=== PATIENT | male | born 1935 | race Caucasian/White ===

== ENCOUNTER → 2017-12-22 | Outpatient (CLI) | payer OTHER, MEDICARE ==
[~2017-12-22] MED LIST: ADULT LOW DOSE81 MG PO; ALEVE220 M1 PO; ARICEPT10 M1 PO; ASPIR 8181 MG PO; ASPIRIN325 PO; CALCIUM 500 +1 EAC4 PO; CALCIUM CITRAT480 GM PO; COUMADIN 5 MG TA5 M1 PO; COZAAR 50 MG TA50 M1 PO; ESTER C PO; FISH OIL 1,001000 M1 PO; FISH OIL SOFTG1 EACH PO; FOSAMAX 70 MG T70 M1 PO; HYDROCHLOROTH12.5 M2 PO; HYZAAR 50-12.51 TAB PO; IBUPROFEN 200200 M1 PO; KLOR-CON 1010 MEQ PO; LOVASTATIN 20 M20 MG; MEVACOR 20 MG T20 MG PO; MULTIVITAMINS PO; NEPHROCAPS SOFT1 CAP PO; PEPCID20 MG PO; PRILOSEC40 MG PO; PROTONIX40 M1 PO; ROBAXIN500 MG PO; SIMVASTATIN40 MG PO; TRAMADOL 50 MG50 MG PO; VITAMIN B-12500 MCG PO; VITAMIN D3400 UNI1 PO; [UNRECOGNIZED DRUG - OTHER] PO
== END ==
LOC: HYPER 12-21 15:51
DX: N30.41 Irradiation cystitis with hematuria (principal); R31.0 Gross hematuria; M19.90 Unspecified osteoarthritis, unspecified site; E78.00 Pure hypercholesterolemia, unspecified; I48.91 Unspecified atrial fibrillation; G47.30 Sleep apnea, unspecified; F03.90 Unspecified dementia, unspecified severity, without behavioral disturbance, psychotic disturbance, mood disturbance, and anxiety; Z98.49 Cataract extraction status, unspecified eye; Z85.46 Personal history of malignant neoplasm of prostate

== ENCOUNTER → 2018-01-04 | Outpatient (CLI) | payer OTHER, MEDICARE | LOC: HYPER 06:55 | DX: N30.41 Irradiation cystitis with hematuria (principal); M19.90 Unspecified osteoarthritis, unspecified site; E78.00 Pure hypercholesterolemia, unspecified; I48.91 Unspecified atrial fibrillation; G47.30 Sleep apnea, unspecified; F03.90 Unspecified dementia, unspecified severity, without behavioral disturbance, psychotic disturbance, mood disturbance, and anxiety; Z85.46 Personal history of malignant neoplasm of prostate; Z79.01 Long term (current) use of anticoagulants; Z79.82 Long term (current) use of aspirin; Z85.828 Personal history of other malignant neoplasm of skin; Z98.49 Cataract extraction status, unspecified eye; Z72.89 Other problems related to lifestyle ==

== ENCOUNTER → 2018-01-05 | Outpatient (CLI) | payer OTHER, MEDICARE | LOC: HYPER 07:00 | DX: M87.88 Other osteonecrosis, other site (principal); N30.41 Irradiation cystitis with hematuria; M19.90 Unspecified osteoarthritis, unspecified site; E78.00 Pure hypercholesterolemia, unspecified; I48.91 Unspecified atrial fibrillation; G47.30 Sleep apnea, unspecified; E78.5 Hyperlipidemia, unspecified; F03.90 Unspecified dementia, unspecified severity, without behavioral disturbance, psychotic disturbance, mood disturbance, and anxiety; Z85.46 Personal history of malignant neoplasm of prostate; Z79.01 Long term (current) use of anticoagulants; Z79.82 Long term (current) use of aspirin; Z85.828 Personal history of other malignant neoplasm of skin; Z98.49 Cataract extraction status, unspecified eye; Z72.89 Other problems related to lifestyle ==

== ENCOUNTER → 2018-01-06 | Outpatient (CLI) | payer OTHER, MEDICARE | LOC: HYPER 06:37 | DX: M87.88 Other osteonecrosis, other site (principal); N30.41 Irradiation cystitis with hematuria; M19.90 Unspecified osteoarthritis, unspecified site; E78.00 Pure hypercholesterolemia, unspecified; I48.91 Unspecified atrial fibrillation; G47.30 Sleep apnea, unspecified; E78.5 Hyperlipidemia, unspecified; F03.90 Unspecified dementia, unspecified severity, without behavioral disturbance, psychotic disturbance, mood disturbance, and anxiety; Z85.46 Personal history of malignant neoplasm of prostate; Z85.828 Personal history of other malignant neoplasm of skin; Z72.89 Other problems related to lifestyle; Z98.49 Cataract extraction status, unspecified eye ==

== ENCOUNTER → 2018-01-07 | Outpatient (CLI) | payer OTHER, MEDICARE | LOC: HYPER 06:52 | DX: M87.88 Other osteonecrosis, other site (principal); N30.41 Irradiation cystitis with hematuria; E78.00 Pure hypercholesterolemia, unspecified; I48.91 Unspecified atrial fibrillation; M19.90 Unspecified osteoarthritis, unspecified site; G47.30 Sleep apnea, unspecified; F03.90 Unspecified dementia, unspecified severity, without behavioral disturbance, psychotic disturbance, mood disturbance, and anxiety; Z85.46 Personal history of malignant neoplasm of prostate; Z85.828 Personal history of other malignant neoplasm of skin; Z72.89 Other problems related to lifestyle ==

== ENCOUNTER → 2018-01-08 | Outpatient (CLI) | payer OTHER, MEDICARE | LOC: HYPER 08:09 | DX: M87.88 Other osteonecrosis, other site (principal); M19.90 Unspecified osteoarthritis, unspecified site; E78.5 Hyperlipidemia, unspecified; N30.41 Irradiation cystitis with hematuria; I48.91 Unspecified atrial fibrillation; G47.30 Sleep apnea, unspecified; F03.90 Unspecified dementia, unspecified severity, without behavioral disturbance, psychotic disturbance, mood disturbance, and anxiety; Z85.46 Personal history of malignant neoplasm of prostate; Z72.89 Other problems related to lifestyle ==

== ENCOUNTER → 2018-01-11 | Outpatient (CLI) | payer OTHER, MEDICARE | LOC: HYPER 07:08 | DX: M27.2 Inflammatory conditions of jaws (principal); N30.41 Irradiation cystitis with hematuria; R31.0 Gross hematuria; M19.90 Unspecified osteoarthritis, unspecified site; E78.00 Pure hypercholesterolemia, unspecified; I48.91 Unspecified atrial fibrillation; E78.5 Hyperlipidemia, unspecified; F03.90 Unspecified dementia, unspecified severity, without behavioral disturbance, psychotic disturbance, mood disturbance, and anxiety; Z85.46 Personal history of malignant neoplasm of prostate; Z72.89 Other problems related to lifestyle ==

== ENCOUNTER → 2018-01-12 | Outpatient (CLI) | payer OTHER, MEDICARE | LOC: HYPER 07:07 | DX: M87.88 Other osteonecrosis, other site (principal); N30.41 Irradiation cystitis with hematuria; M19.90 Unspecified osteoarthritis, unspecified site; E78.00 Pure hypercholesterolemia, unspecified; I48.91 Unspecified atrial fibrillation; G47.30 Sleep apnea, unspecified; F03.90 Unspecified dementia, unspecified severity, without behavioral disturbance, psychotic disturbance, mood disturbance, and anxiety; Z85.46 Personal history of malignant neoplasm of prostate; Z85.828 Personal history of other malignant neoplasm of skin; Z72.89 Other problems related to lifestyle ==

== ENCOUNTER → 2018-01-13 | Outpatient (CLI) | payer OTHER, MEDICARE | LOC: HYPER 06:55 | DX: M87.88 Other osteonecrosis, other site (principal); N30.41 Irradiation cystitis with hematuria; M19.90 Unspecified osteoarthritis, unspecified site; E78.00 Pure hypercholesterolemia, unspecified; G47.30 Sleep apnea, unspecified; F03.90 Unspecified dementia, unspecified severity, without behavioral disturbance, psychotic disturbance, mood disturbance, and anxiety; Z85.46 Personal history of malignant neoplasm of prostate; Z85.828 Personal history of other malignant neoplasm of skin; Z72.89 Other problems related to lifestyle ==

== ENCOUNTER → 2018-01-14 | Outpatient (CLI) | payer OTHER, MEDICARE | LOC: HYPER 06:47 | DX: M27.2 Inflammatory conditions of jaws (principal); N30.41 Irradiation cystitis with hematuria; R31.0 Gross hematuria; M19.90 Unspecified osteoarthritis, unspecified site; F03.90 Unspecified dementia, unspecified severity, without behavioral disturbance, psychotic disturbance, mood disturbance, and anxiety; I48.91 Unspecified atrial fibrillation; E78.5 Hyperlipidemia, unspecified; E78.00 Pure hypercholesterolemia, unspecified; Z85.46 Personal history of malignant neoplasm of prostate; Z72.89 Other problems related to lifestyle ==

== ENCOUNTER → 2018-01-15 | Outpatient (CLI) | payer OTHER, MEDICARE | LOC: HYPER 08:00 | DX: M27.2 Inflammatory conditions of jaws (principal); N30.41 Irradiation cystitis with hematuria; R31.0 Gross hematuria; F03.90 Unspecified dementia, unspecified severity, without behavioral disturbance, psychotic disturbance, mood disturbance, and anxiety; M19.90 Unspecified osteoarthritis, unspecified site; E78.00 Pure hypercholesterolemia, unspecified; I48.91 Unspecified atrial fibrillation; E78.5 Hyperlipidemia, unspecified; Z85.46 Personal history of malignant neoplasm of prostate; Z72.89 Other problems related to lifestyle ==

== ENCOUNTER → 2018-01-18 | Outpatient (CLI) | payer OTHER, MEDICARE | LOC: HYPER 06:45 | DX: M27.2 Inflammatory conditions of jaws (principal); N30.41 Irradiation cystitis with hematuria; R31.0 Gross hematuria; F03.90 Unspecified dementia, unspecified severity, without behavioral disturbance, psychotic disturbance, mood disturbance, and anxiety; M19.90 Unspecified osteoarthritis, unspecified site; E78.00 Pure hypercholesterolemia, unspecified; I48.91 Unspecified atrial fibrillation; E78.5 Hyperlipidemia, unspecified; Z72.89 Other problems related to lifestyle; Z85.46 Personal history of malignant neoplasm of prostate ==

== ENCOUNTER → 2018-01-19 | Outpatient (CLI) | payer OTHER, MEDICARE | LOC: HYPER 06:47 | DX: M27.2 Inflammatory conditions of jaws (principal); N30.41 Irradiation cystitis with hematuria; R31.0 Gross hematuria; Z85.46 Personal history of malignant neoplasm of prostate; F03.90 Unspecified dementia, unspecified severity, without behavioral disturbance, psychotic disturbance, mood disturbance, and anxiety; M19.90 Unspecified osteoarthritis, unspecified site; E78.00 Pure hypercholesterolemia, unspecified; I48.91 Unspecified atrial fibrillation; E78.5 Hyperlipidemia, unspecified; Z72.89 Other problems related to lifestyle ==

== ENCOUNTER → 2018-01-20 | Outpatient (CLI) | payer OTHER, MEDICARE | LOC: HYPER 06:45 | DX: M27.2 Inflammatory conditions of jaws (principal); N30.41 Irradiation cystitis with hematuria; C61 Malignant neoplasm of prostate; R31.0 Gross hematuria; F03.90 Unspecified dementia, unspecified severity, without behavioral disturbance, psychotic disturbance, mood disturbance, and anxiety; M19.90 Unspecified osteoarthritis, unspecified site; E78.00 Pure hypercholesterolemia, unspecified; I48.91 Unspecified atrial fibrillation; E78.5 Hyperlipidemia, unspecified; Z85.46 Personal history of malignant neoplasm of prostate; Z72.89 Other problems related to lifestyle ==

== ENCOUNTER → 2018-01-21 | Outpatient (CLI) | payer OTHER, MEDICARE | LOC: HYPER 06:55 | DX: M27.2 Inflammatory conditions of jaws (principal); N30.41 Irradiation cystitis with hematuria; R31.0 Gross hematuria; F03.90 Unspecified dementia, unspecified severity, without behavioral disturbance, psychotic disturbance, mood disturbance, and anxiety; M19.90 Unspecified osteoarthritis, unspecified site; E78.00 Pure hypercholesterolemia, unspecified; I48.91 Unspecified atrial fibrillation; Z85.46 Personal history of malignant neoplasm of prostate; Z72.89 Other problems related to lifestyle ==

== ENCOUNTER → 2018-01-22 | Outpatient (CLI) | payer OTHER, MEDICARE | LOC: HYPER 08:27 | DX: M87.88 Other osteonecrosis, other site (principal); N30.41 Irradiation cystitis with hematuria; E78.00 Pure hypercholesterolemia, unspecified; I48.91 Unspecified atrial fibrillation; M19.90 Unspecified osteoarthritis, unspecified site; G47.30 Sleep apnea, unspecified; F03.90 Unspecified dementia, unspecified severity, without behavioral disturbance, psychotic disturbance, mood disturbance, and anxiety; Z85.828 Personal history of other malignant neoplasm of skin; Z85.46 Personal history of malignant neoplasm of prostate; Z72.89 Other problems related to lifestyle ==

== ENCOUNTER → 2018-01-25 | Outpatient (CLI) | payer OTHER, MEDICARE | LOC: HYPER 06:58 | DX: M27.2 Inflammatory conditions of jaws (principal); N30.41 Irradiation cystitis with hematuria; R31.0 Gross hematuria; Z85.46 Personal history of malignant neoplasm of prostate; F03.90 Unspecified dementia, unspecified severity, without behavioral disturbance, psychotic disturbance, mood disturbance, and anxiety; M19.90 Unspecified osteoarthritis, unspecified site; E78.00 Pure hypercholesterolemia, unspecified; E78.5 Hyperlipidemia, unspecified ==

== ENCOUNTER → 2018-01-26 | Outpatient (CLI) | payer OTHER, MEDICARE | LOC: HYPER 06:53 | DX: M87.88 Other osteonecrosis, other site (principal); N30.41 Irradiation cystitis with hematuria; M19.90 Unspecified osteoarthritis, unspecified site; E78.00 Pure hypercholesterolemia, unspecified; R31.0 Gross hematuria; I48.91 Unspecified atrial fibrillation; G47.30 Sleep apnea, unspecified; F03.90 Unspecified dementia, unspecified severity, without behavioral disturbance, psychotic disturbance, mood disturbance, and anxiety; Z85.46 Personal history of malignant neoplasm of prostate; Z85.828 Personal history of other malignant neoplasm of skin ==

== ENCOUNTER → 2018-01-27 | Outpatient (CLI) | payer OTHER, MEDICARE | LOC: HYPER 06:49 | DX: M87.88 Other osteonecrosis, other site (principal); N30.41 Irradiation cystitis with hematuria; M19.90 Unspecified osteoarthritis, unspecified site; E78.00 Pure hypercholesterolemia, unspecified; I48.91 Unspecified atrial fibrillation; G47.30 Sleep apnea, unspecified; Z85.828 Personal history of other malignant neoplasm of skin; Z85.46 Personal history of malignant neoplasm of prostate ==

== ENCOUNTER → 2018-01-28 | Outpatient (CLI) | payer OTHER, MEDICARE | LOC: HYPER 07:01 | DX: M27.2 Inflammatory conditions of jaws (principal); R31.0 Gross hematuria; N30.41 Irradiation cystitis with hematuria; F03.90 Unspecified dementia, unspecified severity, without behavioral disturbance, psychotic disturbance, mood disturbance, and anxiety; M19.90 Unspecified osteoarthritis, unspecified site; E78.00 Pure hypercholesterolemia, unspecified; I48.91 Unspecified atrial fibrillation; E78.5 Hyperlipidemia, unspecified; Z85.46 Personal history of malignant neoplasm of prostate; Z72.89 Other problems related to lifestyle ==

== ENCOUNTER → 2018-01-29 | Outpatient (CLI) | payer OTHER, MEDICARE | LOC: HYPER 07:15 | DX: M87.88 Other osteonecrosis, other site (principal); N30.41 Irradiation cystitis with hematuria; M19.90 Unspecified osteoarthritis, unspecified site; E78.00 Pure hypercholesterolemia, unspecified; I48.91 Unspecified atrial fibrillation; G47.30 Sleep apnea, unspecified; F03.90 Unspecified dementia, unspecified severity, without behavioral disturbance, psychotic disturbance, mood disturbance, and anxiety; Z85.46 Personal history of malignant neoplasm of prostate ==

== ENCOUNTER → 2018-02-01 | Outpatient (CLI) | payer OTHER, MEDICARE | LOC: HYPER 06:57 | DX: M27.2 Inflammatory conditions of jaws (principal); N30.41 Irradiation cystitis with hematuria; R31.0 Gross hematuria; M19.90 Unspecified osteoarthritis, unspecified site; F03.90 Unspecified dementia, unspecified severity, without behavioral disturbance, psychotic disturbance, mood disturbance, and anxiety; E78.00 Pure hypercholesterolemia, unspecified; E78.5 Hyperlipidemia, unspecified; Z85.46 Personal history of malignant neoplasm of prostate; Z72.89 Other problems related to lifestyle ==

== ENCOUNTER → 2018-02-02 | Outpatient (CLI) | payer OTHER, MEDICARE | LOC: HYPER 07:02 | DX: M87.88 Other osteonecrosis, other site (principal); N30.41 Irradiation cystitis with hematuria; I48.91 Unspecified atrial fibrillation; M19.90 Unspecified osteoarthritis, unspecified site; E78.00 Pure hypercholesterolemia, unspecified; G47.30 Sleep apnea, unspecified; F03.90 Unspecified dementia, unspecified severity, without behavioral disturbance, psychotic disturbance, mood disturbance, and anxiety; Z85.46 Personal history of malignant neoplasm of prostate ==

== ENCOUNTER → 2018-02-03 | Outpatient (CLI) | payer OTHER, MEDICARE ==
[~2018-02-03] MED LIST changes: -NEPHROCAPS SOFT1 CAP PO; -VITAMIN B-12500 MCG PO
== END ==
LOC: HYPER 07:02
DX: M87.88 Other osteonecrosis, other site (principal); N30.41 Irradiation cystitis with hematuria; M19.90 Unspecified osteoarthritis, unspecified site; E78.00 Pure hypercholesterolemia, unspecified; I48.91 Unspecified atrial fibrillation; E78.5 Hyperlipidemia, unspecified; G47.30 Sleep apnea, unspecified; F03.90 Unspecified dementia, unspecified severity, without behavioral disturbance, psychotic disturbance, mood disturbance, and anxiety; Z85.46 Personal history of malignant neoplasm of prostate

== ENCOUNTER → 2018-02-04 | Outpatient (CLI) | payer OTHER, MEDICARE ==
[~2018-02-04] MED LIST changes: +NEPHROCAPS SOFT1 CAP PO; +VITAMIN B-12500 MCG PO
== END ==
LOC: HYPER 07:18
DX: M27.2 Inflammatory conditions of jaws (principal); N30.41 Irradiation cystitis with hematuria; R31.0 Gross hematuria; Z85.46 Personal history of malignant neoplasm of prostate; F03.90 Unspecified dementia, unspecified severity, without behavioral disturbance, psychotic disturbance, mood disturbance, and anxiety; M19.90 Unspecified osteoarthritis, unspecified site; E78.00 Pure hypercholesterolemia, unspecified; I48.91 Unspecified atrial fibrillation; E78.5 Hyperlipidemia, unspecified

== ENCOUNTER → 2018-02-08 | Outpatient (CLI) | payer OTHER, MEDICARE ==
[~2018-02-08] MED LIST changes: -NEPHROCAPS SOFT1 CAP PO; -VITAMIN B-12500 MCG PO
== END ==
LOC: HYPER 06:53
DX: M27.2 Inflammatory conditions of jaws (principal); N30.41 Irradiation cystitis with hematuria; R31.0 Gross hematuria; F03.90 Unspecified dementia, unspecified severity, without behavioral disturbance, psychotic disturbance, mood disturbance, and anxiety; M19.90 Unspecified osteoarthritis, unspecified site; E78.00 Pure hypercholesterolemia, unspecified; I48.91 Unspecified atrial fibrillation; Z85.46 Personal history of malignant neoplasm of prostate

== ENCOUNTER → 2018-02-09 | Outpatient (CLI) | payer OTHER, MEDICARE | LOC: HYPER 06:40 | DX: M27.2 Inflammatory conditions of jaws (principal); N30.41 Irradiation cystitis with hematuria; R31.0 Gross hematuria; Z85.46 Personal history of malignant neoplasm of prostate; F03.90 Unspecified dementia, unspecified severity, without behavioral disturbance, psychotic disturbance, mood disturbance, and anxiety; M19.90 Unspecified osteoarthritis, unspecified site; E78.00 Pure hypercholesterolemia, unspecified; I48.91 Unspecified atrial fibrillation; E78.5 Hyperlipidemia, unspecified ==

== ENCOUNTER → 2018-02-11 | Outpatient (CLI) | payer OTHER, MEDICARE | LOC: HYPER 07:02 | DX: M27.2 Inflammatory conditions of jaws (principal); N30.41 Irradiation cystitis with hematuria; R31.0 Gross hematuria; F03.90 Unspecified dementia, unspecified severity, without behavioral disturbance, psychotic disturbance, mood disturbance, and anxiety; M19.90 Unspecified osteoarthritis, unspecified site; E78.00 Pure hypercholesterolemia, unspecified; I48.91 Unspecified atrial fibrillation; E78.5 Hyperlipidemia, unspecified; Z85.46 Personal history of malignant neoplasm of prostate ==

== ENCOUNTER → 2018-02-12 | Outpatient (CLI) | payer OTHER, MEDICARE | LOC: HYPER 07:50 | DX: M87.88 Other osteonecrosis, other site (principal); N30.41 Irradiation cystitis with hematuria; E78.00 Pure hypercholesterolemia, unspecified; I48.91 Unspecified atrial fibrillation; M19.90 Unspecified osteoarthritis, unspecified site; G47.30 Sleep apnea, unspecified; F03.90 Unspecified dementia, unspecified severity, without behavioral disturbance, psychotic disturbance, mood disturbance, and anxiety; Z85.46 Personal history of malignant neoplasm of prostate ==

== ENCOUNTER → 2018-06-28 | Outpatient (CLI) | payer OTHER, MEDICARE ==
[~2018-06-28] VITALS: Ht 170.2 cm; Wt 79.0 kg
[~2018-06-28] MED LIST changes: +NEPHROCAPS SOFT1 CAP PO; +VITAMIN B-12500 MCG PO
--- NOTE | ~2018-06-28 | HPC ---
[facility] [place] [address] PAIN MANAGEMENT CONSULTATION Name: ERNA MESA Room [facility]: [facility]#: [id number] Admission: 06/28/18 Attend Phys: Malick Booker MD Discharge: Date of : 33 Report #: [id number] THIS REPORT FOR: //name// CC: Gerard Booker DATE OF SERVICE: 06/28/2018 Followup visit for lumbar spondylosis. I last saw the patient in 01/2017. He has good response to facet injections on the right and has seen me off and on over a number of years. After January of last year, I did not see him and I found out that in 01/2018, he had a stroke. He had aneurysm of the right carotid artery, which was treated by the interventional radiologist. Since then, he has had some decline and although it was noted prior to his visit in 2017, he and his have been open about concerns of dementia and cognitive side effects. It is not immediately evident talking to the patient, although his speech is a bit slow and there is a slight hesitancy. This was not present in 2017. He was able to follow conversation clearly and provide me with good history during his exam today. His biggest complaint is pain across his low back, which limits his ability to walk, which he needs to do for exercise recommended by all of his physicians. PQRS review shows a history of osteoarthritis of multiple joints, a BMI of 27.3, blood pressure 118/70, heart rate 70 and respirations 16. Pain is an 8/10, getting in and out of bed. He is a fall risk having a cane for stability, but has not fallen in the last 3 months. He is on Coumadin, has a history of hypertension and is not currently on any opioid medication. He drinks a beer on occasion, but does not smoke. Physical exam continuation shows musculoskeletal discomfort and tenderness across the low back, pain with back extension and rotational movements. There is no pain to the left at this time. IMPRESSION: 1. Lumbar spondylosis on the right involving lower three facet joints, which have responded nicely in the past to facet injections. 2. 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 PROCEDURE: Lumbar facet injections, L5-S1, L4-L5 and L3-L4 under fluoroscopic guidance. [address] [address] PAIN MANAGEMENT CONSULTATION Name: MOSHEERNA Room #: REG CL Anders#: [id number] Admission: 06/28/18 Attend Phys: Malick Booker MD Discharge: Date of : 33 Report #: [id number] After discussion of the potential risks and benefits, we have elected to proceed with the injections. He understands that these injections carry a slight increased risk with warfarin, but I would prefer not to take him off of it and we will stay out of the epidural space. He was placed in the prone position. Skin was prepped with ChloraPrep. Skin anesthetized overlying the L3-L4, L4-L5 and L5-S1 facet joints. Carefully advanced a 25-gauge needle gently into the posterior inferior aspect of the joint capsule and after negative aspiration injected each joint with 1 mL of 0.5% bupivacaine mixed with 15 mg of triamcinolone. He tolerated the procedure well. He was taken to recovery room and was observed for 30 minutes and discharged with a pain score of 0. Follow up as needed. By: [id number] Malick Booker MD /nt
[2018-06-28 14:17] VITALS: BP 118/70
== END | disposition home or self-care (01) ==
LOC: PAIN 07:01
DX: M47.816 Spondylosis without myelopathy or radiculopathy, lumbar region (principal); G89.29 Other chronic pain; I10 Essential (primary) hypertension; M19.90 Unspecified osteoarthritis, unspecified site; Z79.01 Long term (current) use of anticoagulants; Z86.73 Personal history of transient ischemic attack (TIA), and cerebral infarction without residual deficits; Z79.899 Other long term (current) drug therapy; Z79.82 Long term (current) use of aspirin